=== PATIENT | male | born 2000 | race Hispanic/Latino ===

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

== ENCOUNTER 2023-03-22 08:12 | Emergency (ER) | payer OTHER ==
[2023-03-22] MEDS ORDERED: Ibuprofen 800 MG TAB ONE (08:27)
== END 2023-03-22 09:04 | disposition home or self-care (01) ==
LOC: MADERS 08:12
DX: S93.402A Sprain of unspecified ligament of left ankle, initial encounter (principal); X50.1XXA Overexertion from prolonged static or awkward postures, initial encounter; Y93.01 Activity, walking, marching and hiking